=== PATIENT | female | born 1980 | race Caucasian/White ===

== ENCOUNTER 2022-07-08 15:33 | Emergency (ER) | payer OTHER ==
[~2022-07-08 15:33] MED LIST: PREDNISONE 20 M20 MG PO; PROVENTIL HFA6.7 GM INH; ZITHROMAX250 MG PO
[2022-07-08 16:13] LABS: RED BLOOD COUNT 4.44 M/UL (4.00-5.10); WHITE BLOOD COUNT 9.6 K/UL (4.5-11.0)
[2022-07-08 16:46] LABS: BUN/CREATININE RATIO 14 (0-10)
[2022-07-08] MEDS ORDERED: CEPHALEXIN500 MG PO (17:25)
== END 2022-07-08 17:50 | disposition home or self-care (01) ==
LOC: ER1 15:33
PROVIDERS: Emergency Medicine
DX: L03.116 Cellulitis of left lower limb (principal); F17.200 Nicotine dependence, unspecified, uncomplicated
CPT/HCPCS: 80053; 85025; 93971; 99284